=== PATIENT | female | born 1965 | race African-American/Black ===

== ENCOUNTER 2018-01-05 14:48 | Inpatient (IN) | payer SELFPAY ==
[2018-01-05 16:01] LABS: Mean Corpuscular HGB CONC 32.4 g/dL (32.0-36.0); Mean Corpuscular Hemoglobin 29.5 pg (27.0-31.0); Mean Corpuscular Volume 91.2 fl (81.0-99.0); Mean Platelet Volume 7.6 fL (7.4-10.4); Platelet Count 292 thou/uL (130-400); RBC Distribution Width 13.6 % (11.5-14.5); Red Blood Cell (RBC) Count 2.72 mill/uL (4.20-5.40); White Blood Cell (WBC) Count 14.9 thou/uL (4.8-10.8)
[2018-01-05 16:08] LABS: INR-International Normal Ratio 1.1; PTT 26.9 SEC (22.9-36.1); Prothrombin Time 14.4 SEC (12.0-14.7)
[2018-01-05 16:11] LABS: Bilirubin Small (Negative); Blood, Urine Small (Negative); Clarity CLOUDY (Clear); Glucose, Urine (Dipstick) 100 mg/dL (Negative); Leukocyte Moderate (Negative); Nitrite Negative (Negative); Protein, Urine (Dipstick) 100 mg/dL (Neg-Trace); Specific Gravity, Urine 1.024 (1.002-1.036); pH, Urine 6.5 (5.0-9.0)
[2018-01-05 16:13] LABS: Bacteria/HPF None Seen HPF (None Seen)
[2018-01-05 16:15] LABS: Pathc Cast-AUWi Flag 33.29 (0-2.49)
[2018-01-05 16:15] LABS: BHCG - Serum Negative (NEGATIVE); Pregs Control Background? CLEAR/WHITE (CLR/WHITE); Pregs Control Bar Appear? YES (CONTROL BAR)
[2018-01-05 16:16] LABS: Band 2 % (5-11); Eosinophils 1 % (0-10); Lymphocytes 16 % (21-51); MDiff Complete? YES; Monocytes 9 % (0-10); Neutrophil 72 % (42-75); PLT Morphology Comment Appears Adequate; Polychromasia MODERATE = 3-4 cells (100X) (0-2/hpf)
[2018-01-05 16:20] LABS: Medtox Reader # READER 1
[2018-01-05 16:21] LABS: Amphetamine Not Detected (NotDetected); Barbiturates Screen Not Detected (NotDetected); Benzodiazepine Screen Not Detected (NotDetected); Cocaine Metabolite Screen Detected (NotDetected); Medtox Control Line Valid? VALID (VALID); Methadone Not Detected (NotDetected); Methamphetamine Not Detected (NotDetected); Opiate Screen Not Detected (NotDetected); Oxycodone Screen Not Detected (NotDetected); Phencyclidine (PCP) Not Detected (NotDetected); THC/Cannabinoid Screen Not Detected (NotDetected); Tricyclic Screen Not Detected (NotDetected)
[2018-01-05 16:23] LABS: Renal Epithelial None Seen HPF (0-3); Transitional Epithelial NONE SEEN HPF (0-3); Trichomonas/HPF 1+ HPF (None Seen); Yeast-All Forms None Seen HPF (None Seen)
[2018-01-05 16:26] LABS: ALT (SGPT) 9 U/L (8-55); AST (SGOT) 10 U/L (5-34); Albumin 3.3 g/dL (3.5-5.0); Alkaline Phosphatase 74 U/L (40-150); Anion Gap 13 mmol/L (10-20); BUN (Urea Nitrogen) 9 mg/dL (9.8-20.1); Bilirubin, Total 0.5 mg/dL (0.2-1.2); Calc. Creatinine Clearance 0 mL/min (70-130); Calcium 8.6 mg/dL (7.8-10.44); Carbon Dioxide 23 mmol/L (22-29); Chloride 104 mmol/L (98-107); Estimated GFR-MDRD 78; Globulin 2.8 g/dL (2.4-3.5); Glucose 134 mg/dL (70-105); Potassium 4.1 mmol/L (3.5-5.1); Protein, Total 6.1 g/dL (6.0-8.3); Sodium 136 mmol/L (136-145)
[2018-01-05 16:30] LABS: CKMB 0.5 ng/mL (0-6.6); Troponin I 0.024 ng/mL (< 0.028)
[2018-01-05 16:38] LABS: Thyroid Stimulating Hormone 0.6161 uIU/mL (0.35-4.94)
[2018-01-05] MEDS ORDERED: Estrogens, Conjugated 25 mg Vial SLOW IVP SCH (17:00)
[2018-01-05 17:15] LABS: Acetaminophen Less than 6.0 mcg/mL (10.0-30.0); Alcohol Less than 10 mg/dL (Less than 10); CK (CPK) 25 U/L (29-168); Salicylate Less than 8.0 mg/dL (15.0-30.0)
--- NOTE | 2018-01-05 17:38 | ULT ---
PELVIC ULTRASOUND: 01/05/2018 HISTORY: Vaginal bleeding. TECHNIQUE: Multiple transabdominal and endovaginal sonographic images of the pelvis are obtained. FINDINGS: The uterus is enlarged, measuring 15.2 cm x 10.9 cm x 13 cm. The uterus is also heterogeneous in shemar earance bilaterally, and there is a discrete heterogeneous mass within the lower portion of the uteru s, measuring 4.5 cm in maximal dimensions, with associated posterior shadowing. Findings are likely attributable to a fibroid uterus. Although an additional discrete mass is not visualized, generalized heterogeneity of the uterus sugge sts multiple fibroids within the uterus. The endometrial stripe is not well delineated on this exam. The ovaries are unable to be visualized bilaterally. No adnexal mass is seen. IMPRESSION: 1. Enlarged heterogeneous appearance of the uterus, which may be related to a large fibroid uterus. There is at least one discrete mass seen in the lower uterine segment, measuring 4.5 cm. 2. Nonvisualization of the bilateral ovaries. 3. Nonemergent obstetrical/gynecological consultation is suggested. POS: [facility]
[2018-01-05] MEDS ORDERED: Ibuprofen 800 MG TAB PO PRN (17:44)
[2018-01-05] MEDS ORDERED: Water For Injection,Sterile 20 ML ONE (17:52)
--- NOTE | 2018-01-05 17:59 | RAD ---
PORTABLE AP CHEST X-RAY: 01/05/2018 HISTORY: Chest pain. COMPARISON: None available. FINDINGS: The cardiac silhouette and pulmonary vasculature are within normal limits. The lungs are clear. Deg enerative changes are noted in the spine. 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 IMPRESSION: No acute cardiopulmonary process. POS: [facility]
[2018-01-05] MEDS ORDERED: metroNIDAZOLE 250 MG TAB ONE (18:01)
--- NOTE | 2018-01-05 18:28 | PDOC.EVN ---
Event Note - Event Note Event Note: @1827: MEDICATION CHANGE: Patient received 25mg Estrogen SIVP in the ED. I will stop the IV estrogen in case the pathology from the EMB later returns to be estrogen stimulated (hyperplasia), and I have now ordered oral provera 10mg 1 po TID.
--- NOTE | 2018-01-05 18:30 | PDOC.EVN ---
Event Note - Event Note Event Note: Lab check: TSH is normal. UCG is negative.
--- NOTE | 2018-01-05 18:37 | HP ---
TIME: 17:45. LOCATION: ER bed #5. REASON FOR EVALUATION: Postmenopausal patient, requiring 1 unit blood transfusion EMB. REQUESTING PHYSICIAN: Sohail So M.D., in the ER. HISTORY OF PRESENT ILLNESS: In brief, this is a 53-year-old -[place] female who is a 3, para 3, who has not had a menstrual cycle for 2 years, who stated that since last (about 3 days ago); she began having vaginal bleeding with clots. She also frequently uses cocaine. She h as no past medical history, denies hot flashes, chest pain, or pelvic cramps. She denies any recent trauma. Last sexual activity was 11/2017. PAST MEDICAL HISTORY: None. 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 She was told years ago that she h ad fibroids. She has not had a recent Pap smear. PAST SURGICAL HISTORY: None. OBSTETRICAL HISTORY: Significant for 3 vaginal deliveries. ALLERGIES: None. REVIEW OF SYSTEMS: Complete review of systems was checked and is otherwise negative unless specified in the HPI. PHYSICAL EXAMINATION: VITAL SIGNS: The patient's pulse was in the 110s, but she is in no acute distress. Other vitals are within normal. She is afebrile. GENERAL: I evaluated the patient at bedside; she is in no acute distress. ABDOMEN: Obese, but soft and nontender. No masses are palpated. PELVIC: There was a small clot in the vagina, but no active bleeding. Cervix was without gross lesi ons. LABORATORY AND IMAGING DATA: On admission to the ER, the patient was noted to have a white blood suraj l count of 14, hemoglobin of 8, hematocrit of 24 and platelets of 292. PT was 14, PTT 26. Creatinin e was 0.78, glucose 134 (random). Urine showed positive cocaine metabolites. The vaginal test was p ositive for Trichomonas. Ultrasound showed multiple fibroids, but the official read is still pending . Endometrial stripe appeared thickened by my review, but once again the final read is still pending . There were no ovarian masses. EKG shows sinus tachycardia, but no other changes. Gonorrhea and C hlamydia were also collected and those are pending. PCR was sent off, but still pending. Cardiac en zymes were collected and they are negative as well. PROCEDURE: Endometrial biopsy. I explained to the patient the need for an endometrial biopsy. An e ndometrial biopsy was performed by me with 3 passes showing abundant tissue. This was placed in form yamila and sent down to the lab. This was walked down to the lab by one of our nurses. ASSESSMENT: This is a 53-year-old postmenopausal patient who is 3, para 3, positive for coca ine metabolites, trichomoniasis on vaginal testing, with now greatly reduced vaginal bleeding. PLAN: 1. Due to the patient's initial tachycardia, Dr. So in the ER has ordered 1 unit of packed red bl ood cells, which was in process when I evaluated the patient. The slight tachycardia is likely from anemia; however, the concomitant use of cocaine may have contributed to the high heart rate. The pat ient's mood and affect is normal and the patient does not appear to be under the influence at this ti co. 2. Gonorrhea and Chlamydia were sent and pending. 3. CBC in the morning pending. 4. I have ordered a TSH for the morning. 5. I have collected an endometrial biopsy and this has been sent off to the lab. 6. We will continue with IV estrogen 25 mg IV q.4 hours for 6 dosages in accordance to ACOG guidelin es. 7. I have explained this plan of care to the patient and to no questions arose.
[2018-01-05] MEDS: medroxyPROGESTERone Acetate 5 MG TAB PO SCH (20:59)
[2018-01-05] MEDS: Acetaminophen 500 MG TAB PO PRN (21:00)
[2018-01-06 00:34] VITALS: BMI 39.1
[2018-01-06 05:38] LABS: Band 5 % (5-11); Eosinophils 1 % (0-10); Hemoglobin 6.7 g/dL (12.0-16.0); Lymphocytes 9 % (21-51); MDiff Complete? YES; Mean Corpuscular HGB CONC 33.5 g/dL (32.0-36.0); Mean Corpuscular Hemoglobin 29.8 pg (27.0-31.0); Mean Corpuscular Volume 89.1 fl (81.0-99.0); Mean Platelet Volume 7.7 fL (7.4-10.4); Metamyelocyte 1 % (0-0); Monocytes 6 % (0-10); Neutrophil 78 % (42-75); PLT Morphology Comment Appears Adequate; Platelet Count 208 thou/uL (130-400); RBC Distribution Width 13.1 % (11.5-14.5); Red Blood Cell (RBC) Count 2.25 mill/uL (4.20-5.40); White Blood Cell (WBC) Count 20.4 thou/uL (4.8-10.8)
--- NOTE | 2018-01-06 06:02 | PDOC.EVN ---
Event Note - Event Note Event Note: BLOOD TRANSFUSION NOTE/ Progress note HD #1 (admitted 01/05/18) @0600: Patient in room 337. Bleeding now decreased S. No lightheadedness O. EMB pending GC/Chl VP3 was negative for trichomoniasis but the UA showed 1+ TRICH organisms...she recieved FLAGYL 2 grams stat dose in the ED for this. Last hemoglobin was 6.7 (HCT 20.1). Physical: no active VB Assessment and Plan: 1. Postmenopusal VB-- stable and decreased on provera 10mg 1 po TID..will go home on that regimine likely tomorrow 2. Trichomoniasis--VP3 was negative but found in the urine. Treated. 3. EMB--pending results 4. HCT. Patient recieved 1 unit PRBC. Follow up HCT was 20 with Hgb of 6.7. Baed on the patient's age of 53 and BMI of 39...we will give an additional unit of PRBC today (this am). We will premedicate with tylenol and benadryl. Recheck HCT AM run.
[2018-01-06] MEDS ORDERED: diphenhydrAMINE 25 MG CAP PO SCH (06:15)
--- NOTE | 2018-01-06 06:44 | PDOC.EVN ---
Event Note - Event Note Event Note: HIV and RPR ordered
[2018-01-06] MEDS ORDERED: Sodium Chloride 0.9% 10 ML ONE (06:49)
[2018-01-06] MEDS: Acetaminophen 500 MG TAB PO PRN (07:33)
[2018-01-06 08:02] LABS: HIV (1/2) Antibody/Antigen Non-Reactive (NonReactive); HIV 1/2 INDEX 0.06 S/CO (<1.00)
[2018-01-06 08:13] LABS: Syphilis Antibody Index 7.54 S/CO (<1.00 Non-Reactive)
[2018-01-06] MEDS: medroxyPROGESTERone Acetate 5 MG TAB PO SCH ×3 (09:27→20:50)
[2018-01-06 21:06] LABS: Syphilis Antibody INDETERMINATE (Nonreactive); Syphilis Titer Non-Reactive (Negative)
[2018-01-06 22:22] LABS: Chlamydia by PCR Not Detected (NotDetected); GC by PCR Not Detected (NotDetected)
[2018-01-07 06:11] LABS: Hemoglobin 7.5 g/dL (12.0-16.0); Mean Corpuscular HGB CONC 33.7 g/dL (32.0-36.0); Mean Corpuscular Volume 88.9 fl (81.0-99.0); Mean Platelet Volume 7.3 fL (7.4-10.4); Platelet Count 214 thou/uL (130-400); RBC Distribution Width 13.4 % (11.5-14.5)
--- NOTE | 2018-01-07 08:07 | PRG ---
DATE OF SERVICE: 01/07/2018 SUBJECTIVE: The patient is doing well this morning without complaints. She reports that she has been ambulating in the hallways without any dizziness. Her bleeding has decreased and is now just light. She had to change the pad a couple times overnight, but it was not saturated. OBJECTIVE: VITAL SIGNS: Blood pressure 132/74, pulse 103, respiratory rate 16, temperature 98.5. GENERAL: Awake, alert, in no acute distress. CHEST: Nonlabored breathing. ABDOMEN: Obese, soft, nontender to palpation. PELVIC: Deferred. LABORATORY DATA: WBC 11.0, hemoglobin 7.5, hematocrit 22.2. HIV negative. Chlamydia and gonorrhea negative. RPR nonreactive. Syphilis antibody indeterminate. Endometrial biopsy pending. ASSESSMENT AND PLAN: 1. Postmenopausal female with vaginal bleeding, but is stable and decreased on Provera 10 mg t.i.d. 2. Trichomonas, status post treatment. 3. Endometrial biopsy pending. 4. Hematocrit status post 2 units packed red blood cells with improvement of hemoglobin to 7.5 from 6.7 yesterday. We will likely discharge home later today to continue Provera 10 mg t.i.d. She will need to follow up at [facility] [place] for further management of her postmenopausal bleeding. TOMASA
[2018-01-07 09:00] VITALS: BP 145/73; TEMP 98.7
[2018-01-07] MEDS: medroxyPROGESTERone Acetate 5 MG TAB PO SCH (09:30)
--- NOTE | 2018-01-07 09:41 | PDOC.EVN ---
Event Note - Event Note Event Note: DISCHARGE NOTE Admit: 01/05/18 Discharge: 01/07/18 Procedure: Blood Transfusion DX: Postmenopusal Vaginal Bleeding Severe anemia Trichomoniasis Uterine Fibroids Cocaine use This patient presented to the [facility] ED with complaint of heavy VB after 2 years of no periods. She is a 53 yo AAF, multiparous. last sexual actiivity was November 2017, UCG negative, Due to initial tachycardia, Dr Mora ordered 1 unit PRBCs in the ED. She was RX'd for trich inn the urine (VP3 negative) and I evaluated her in the ED. We elected to keep her for oral provera 10mg po TID. One IVPush of 25mg CEE was given initially in ED. Sono revealed fibroid uterus. EMB collected but results were pending by 01/07/18 AM. Cocaine metabolite positive on ED tox screen (admits to use). She received a total of 2 units PRBCs with final Hgb being 7.5. HIV was negative , RPR was negative. Syphilis IgG was indeterminate..will recheck in 6 weeks. GC/ Chl PCR was negative Patient seen the AM of 01/07/18. home with provera 10mg 1 po TID x 10 days Follow up [facility] in one week for EMB check.
--- NOTE | 2018-01-07 15:52 | PDOC.EVN ---
Event Note - Event Note Event Note: After Discharge Lab Follow up: EMB check: EMB negative for hyperplasia, malignancy. Benign endometrium.
== END 2018-01-07 10:59 | disposition home or self-care (01) | DRG 745 ==
LOC: ERS 14:48 → 3SW 19:00
PROVIDERS: ADMIT Obstetrics & Gynecology; ATTEND Obstetrics & Gynecology
PROC: 0UDB7ZX Extraction of Endometrium, Via Natural or Artificial Opening, Diagnostic (ICD-10-PCS; principal; 2018-01-05)
PROC: 30233N1 Transfusion of Nonautologous Red Blood Cells into Peripheral Vein, Percutaneous Approach (ICD-10-PCS; 2018-01-07)
DX: N95.0 Postmenopausal bleeding (principal); A59.9 Trichomoniasis, unspecified; F14.10 Cocaine abuse, uncomplicated; D64.9 Anemia, unspecified; D25.9 Leiomyoma of uterus, unspecified; R00.0 Tachycardia, unspecified
CPT/HCPCS: 36415; 36430; 51701; 71045; 76856; 80053; 80306; 80307; 81003; 81015; 82553; 83690; 83880; 84443; 84484; 84703; 85025; 85027; 85610; 85730; 86593; 86780; 86850; 86900; 86901; 87389; 87480; 87491; 87510; 87591; 87660; 88305; 93005; 96360; 96374; A4216; A4353; J1410; P9016